=== PATIENT | female | born 1975 | race African-American/Black ===

== ENCOUNTER 2017-05-25 02:38 | Emergency (ER) | payer OTHER ==
[~2017-05-25] VITALS: Ht 180.3 cm; Wt 73.5 kg
[2017-05-25] MEDS ORDERED: KEFLEX500 M1 PO (03:51)
[2017-05-25 04:11] VITALS: BP 126/80
== END 2017-05-25 04:12 | disposition home or self-care (01) ==
LOC: M.ERS 02:38
DX: S61.011A Laceration without foreign body of right thumb without damage to nail, initial encounter (principal); Z88.6 Allergy status to analgesic agent; Z88.5 Allergy status to narcotic agent; W26.0XXA Contact with knife, initial encounter; Y93.G1 Activity, food preparation and clean up; Y92.89 Other specified places as the place of occurrence of the external cause; Y99.8 Other external cause status